=== PATIENT | male | born 1965 | race Caucasian/White ===

== ENCOUNTER 2017-06-25 11:50 | Emergency (ER) | payer OTHER ==
[~2017-06-25] VITALS: Ht 190.5 cm; Wt 108.9 kg
[2017-06-25] MEDS ORDERED: PERCOCET 5-3251 EACH PO (13:54)
== END 2017-06-25 14:27 | disposition home or self-care (01) ==
LOC: ED 11:50
DX: M66.861 Spontaneous rupture of other tendons, right lower leg (principal)
CPT/HCPCS: 73560; 76882; 96372; 96374; 96375; 99284; J1170; J1885; J2405

== ENCOUNTER 2017-07-15 17:13 | Emergency (ER) | payer OTHER ==
[~2017-07-15] VITALS: Ht 190.5 cm; Wt 108.9 kg
[~2017-07-15 17:13] MED LIST: PERCOCET 5-3251 EACH PO
[2017-07-15] MEDS ORDERED: AUGMENTIN 875-1 EACH PO (17:41)
== END 2017-07-15 18:38 | disposition home or self-care (01) ==
LOC: ED 17:13
DX: T81.4XXA Infection following a procedure, initial encounter (principal); Z98.890 Other specified postprocedural states
CPT/HCPCS: 96372; 99283; J0696